=== PATIENT | female | born 1990 | race African-American/Black ===

== ENCOUNTER 2020-01-12 12:47 | Emergency (ER) | payer SELFPAY ==
[~2020-01-12] VITALS: Ht 162.6 cm; Wt 54.0 kg
[~2020-01-12 12:47] MED LIST: CEPHALEXIN500 M1 PO; COLACE100 MG PO; DILANTIN 100MG100 MG PO; FOLIC ACID; METRONIDAZOLE500 MG PO; NAPROSYN500 MG PO; PRENATAL VITAMI1 TA5 PO; ULTRAM 50MG TAB50 MG PO; ZITHROMAX500 MG PO
[2020-01-12 16:09] VITALS: BP 124/84; PULSE 81; TEMP 98.5
== END 2020-01-12 16:09 | disposition home or self-care (01) ==
LOC: COL.ER 12:47
DX: J02.9 Acute pharyngitis, unspecified (principal); F17.210 Nicotine dependence, cigarettes, uncomplicated

== ENCOUNTER 2020-03-26 18:27 | Emergency (ER) | payer SELFPAY ==
[~2020-03-26] VITALS: Ht 10.2 cm; Wt 59.1 kg
[2020-03-26 18:34] VITALS: TEMP 97.3
[2020-03-26 19:17] LABS: COLLECTION METHOD CLEAN CATCH
[2020-03-26 19:24] LABS: MUCOUS Present /lpf; PH 6 (5-8); URINE APPEARANCE Cloudy; URINE BACTERIA None Seen /hpf; URINE BILIRUBIN Negative (NEGATIVE); URINE BLOOD 3+ (NEGATIVE); URINE COLOR Yellow; URINE GLUCOSE Negative (NEGATIVE); URINE KETONE Negative (NEGATIVE); URINE LEUKOCYTE ESTERASE 2+ (NEGATIVE); URINE NITRATE Negative (NEGATIVE); URINE PROTEIN(semi-quant) 2+ (NEGATIVE); URINE RBC >50 /hpf
[2020-03-26] MEDS ORDERED: CEFTIN 250250 MG/TAB PO ×3 (19:34→21:19)
[2020-03-26 20:00] VITALS: BP 124/84; PULSE 92
== END 2020-03-26 20:00 | disposition home or self-care (01) ==
LOC: COL.ER 18:27
PROVIDERS: Nurse Practitioner
DX: N39.0 Urinary tract infection, site not specified (principal); Z87.891 Personal history of nicotine dependence; Z32.02 Encounter for pregnancy test, result negative

== ENCOUNTER 2020-11-12 02:31 | Emergency (ER) | payer MEDICAID ==
[~2020-11-12] VITALS: Ht 152.4 cm; Wt 54.5 kg
[~2020-11-12 02:31] MED LIST changes: +CEFTIN 250250 MG/TAB PO
[2020-11-12 03:13] VITALS: TEMP 97.8
[2020-11-12] MEDS ORDERED: CEPHALEXIN500 M1 PO (04:22)
[2020-11-12] MEDS ORDERED: MOTRIN 800800 MG/TAB PO (04:22)
[2020-11-12 04:35] VITALS: BP 108/77; PULSE 72
== END 2020-11-12 04:35 | disposition home or self-care (01) ==
LOC: COL.ER 02:31
DX: I88.9 Nonspecific lymphadenitis, unspecified (principal)
CPT/HCPCS: J0696

== ENCOUNTER 2022-06-18 11:29 | Emergency (ER) | payer MEDICAID ==
[~2022-06-18] VITALS: Ht 167.6 cm; Wt 65.6 kg
[~2022-06-18 11:29] MED LIST changes: +MOTRIN 800800 MG/TAB PO
[2022-06-18 11:36] VITALS: TEMP 98.8
[2022-06-18 12:30] LABS: BASO # 0.1 K/mm3 (0.0-0.2); BASO % 1.5 % (0.0-2.0); EOS # 0.3 K/mm3 (0.0-0.7); EOS % 5.2 % (0.0-4.0); GRAN # 2.8 K/mm3 (1.4-6.5); GRAN % 46.7 % (42.2-75.2); HEMOGLOBIN 11.8 g/dl (12.5-16.0); LYMPH # 2.1 K/mm3 (1.2-3.4); LYMPH % 35.8 % (20.0-51.0); MEAN CELL VOLUME 81 fl (80.0-100.0); MEAN CORPUSCULAR HEMOGLOBIN 27 pg (27-31); MEAN CORPUSCULAR HGB CONC 33 g/dl (33.0-37.0); MONO # 0.6 K/mm3 (0.1-0.6); MONO % 10.5 % (1.7-9.3); PLATELET COUNT 385 K/mm3 (130-400); RED BLOOD COUNT 4.45 M/mm3 (4.10-5.30); REDCELL DISTRIBUTION WIDTH-CV 14.2 % (11.5-14.5)
[2022-06-18 12:34] LABS: HEMATOCRIT 36.2 % (37.0-47.0)
[2022-06-18 12:47] LABS: TRICYCLIC ANTIDEPRESS URINE NEGATIVE
[2022-06-18 12:51] LABS: ALBUMIN 3.6 gm/dL (3.5-5.0); BILIRUBIN,TOTAL 0.4 mg/dL (0.2-1.2); CALCIUM 9.1 mg/dL (8.4-10.2); CREATININE, serum 0.74 mg/dL (0.57-1.11); POTASSIUM 3.5 mmol/L (3.5-4.5); TOTAL PROTEIN 6.7 gm/dL (6.2-8.1)
[2022-06-18] MEDS ORDERED: KEPPRA 500MG500 MG PO (15:06)
[2022-06-18 15:21] VITALS: BP 141/102; PULSE 62
== END 2022-06-18 15:29 | disposition home or self-care (01) ==
LOC: COL.ER 11:29
PROVIDERS: Emergency Medicine
DX: R41.82 Altered mental status, unspecified (principal); D64.9 Anemia, unspecified; Z28.310 Unvaccinated for COVID-19
CPT/HCPCS: J1953; J2310